=== PATIENT | male | born 1955 | race Caucasian/White ===

== ENCOUNTER 2021-09-28 08:08 | Inpatient (IN) | payer MEDICARE, OTHER ==
[2021-09-21 15:39] LABS: BASOPHILS % (AUTO) 0.4 % (0-1); EOSINOPHILS # (AUTO) 0.2 X10'3 (0-0.9); EOSINOPHILS % (AUTO) 3.4 % (0-6); LYMPHOCYTES # (AUTO) 2.1 X10'3 (1.1-4.8); LYMPHOCYTES % (AUTO) 29.8 % (21-51); MEAN CORPUSCULAR HEMOGLOBIN 34.2 PG (27.0-31.0); MEAN CORPUSCULAR HGB CONC 33.9 g/dL (33.0-36.5); MEAN CORPUSCULAR VOLUME 100.8 FL (78-98); MEAN PLATELET VOLUME 7.8 FL (7.4-10.4); MONOCYTES # (AUTO) 0.7 X10'3 (0-0.9); MONOCYTES % (AUTO) 10.3 % (2-12); NEUTROPHILS # (AUTO) 3.9 X10'3 (1.8-7.7); NEUTROPHILS % (AUTO) 56.1 % (42-75); PRE OP HEMATOCRIT 39.2 % (42.0-52.0); PRE OP HEMOGLOBIN 13.3 g/dL (14.0-17.9); PRE OP PLATELET COUNT 188 X10'3 (140-440); RED BLOOD COUNT 3.89 X10'6 (4.70-6.10); RED CELL DISTRIBUTION WIDTH 13.9 % (11.5-14.5)
[2021-09-21 15:53] LABS: PRE OP PROTIME 10.1 SECONDS (9.0-12.0)
[2021-09-21 15:54] LABS: ALBUMIN 3.6 G/DL (3.4-5.0); ALKALINE PHOSPHATASE 58 IU/L (46-116); BLOOD UREA NITROGEN 15 MG/DL (7-18); BUN/CREATININE RATIO 16.7 (5.4-32.0); CALCIUM 8.5 MG/DL (8.5-10.1); CHLORIDE 103 MMOL/L (99-107); PRE OP ALT 28 U/L (30-65); PRE OP ANION GAP 10 (8-16); PRE OP AST 24 U/L (10-37); PRE OP BILIRUB, TOTAL 0.5 MG/DL (0.0-1.0); PRE OP GLUCOSE 102 MG/DL (70-104); PRE OP POTASSIUM 3.9 MMOL/L (3.4-5.1); PRE OP SODIUM 140 MMOL/L (135-145); TOTAL CARBON DIOXIDE 27.4 MMOL/L (24-32); TOTAL PROTEIN 7.3 G/DL (6.4-8.2); eGFR 84 ML/MIN
[2021-09-28] VITALS (26 sets, daily range): BP systolic 104–154; BP diastolic 50–109
[~2021-09-28] VITALS: Ht 177.8 cm; Wt 100.0 kg
[~2021-09-28 08:08] MED LIST: ACET-2971 PO; ALLO300T8 PO; ASCO-139 PO; ASPI-529 PO; ATOR10TA70 PO; CARV12.5 PO; DIAZ10TA4 PO; DOCUMENT DATE & TIME OF BETA-BLOCKER PO ONE; FOLI0.4T6 PO; FURO20TA4 PO; HYDR-3964 PO; MAGN400C PO; MULT-1085 PO; OMEG-165 PO; POTA-192 PO; PRE1T PO; THIA50TA10 PO; ceFAZolin inj. 2,000 MG in dextrose 5%-water 100 ML IV ONE; famotidine 20mg tablet PO ONE; ringers solution, lacted 1,000 ML IV SCH; tranexamic acid 650mg tablet PO ONE; vancomycin/NS 1 GM in NS 250 ML IV ONE
--- NOTE | 2021-09-28 09:23 | NUR ---
CSM INTACT PEDAL PULSES MARKED, PATIENT DID NOT WATCH ORTHO VIDEOS BUT DID USE NASAL OINTMENT ORDERED
[2021-09-28 09:45] LABS: ALANINE AMINOTRANSFERASE 29 U/L (12-78); ALBUMIN 3.6 G/DL (3.4-5.0); ALBUMIN/GLOBULIN RATIO 0.9 (1.1-1.5); ALKALINE PHOSPHATASE 63 IU/L (46-116); ANION GAP 8 (8-16); ASPARTATE AMINO TRANSFERASE 25 U/L (10-37); BILIRUBIN,TOTAL 0.8 MG/DL (0.1-1.0); BLOOD UREA NITROGEN 12 MG/DL (7-18); BUN/CREATININE RATIO 15.2 (5.4-32.0); CALCIUM 8.7 MG/DL (8.5-10.1); CHLORIDE 102 MMOL/L (99-107); CREATININE 0.79 MG/DL (0.60-1.10); GLUCOSE 104 MG/DL (70-104); POTASSIUM 4.3 MMOL/L (3.5-5.1); SODIUM 138 MMOL/L (135-145); TOTAL CARBON DIOXIDE 28.1 MMOL/L (24-32); TOTAL PROTEIN 7.4 G/DL (6.4-8.2); eGFR > 90 ML/MIN
[2021-09-28] MEDS ORDERED: proCHLORperazine 10 MG/2 ml inj IV PRN (11:10)
[2021-09-28] MEDS ORDERED: morphine 2 MG/ML inj. syringe IV PRN (11:10)
[2021-09-28] MEDS ORDERED: ondansetron/PF 4mg/2ml inj IV PRN ×2 (11:10→14:50)
[2021-09-28] MEDS ORDERED: morphine 4 MG/ML inj SYRINge IV PRN (11:10)
[2021-09-28] MEDS ORDERED: ringers solution, lacted 1,000 ML IV SCH (11:10)
[2021-09-28] MEDS ORDERED: meperidine/PF 25mg/ml syringe IV PRN ×3 (11:10)
[2021-09-28] MEDS ORDERED: ketorolac trometh. 30mg/ml inj. ONE (11:42)
[2021-09-28] MEDS ORDERED: ROPIVAcaine 0.5% (5mg/ml) 30ml vial ONE (11:42)
[2021-09-28] MEDS ORDERED: MIDAZolam 1mg/ml 10ml vial ONE (12:52)
[2021-09-28] MEDS ORDERED: fentaNYL/PF 50MCG/1 ML 2ML syringe ONE (12:52)
[2021-09-28] MEDS ORDERED: BUPIVAcaine 0.5% inj/PF 30 ML ONE (13:01)
[2021-09-28] MEDS ORDERED: magnesium hydroxide 30ml (MOM) UD suspension PO PRN (14:50)
[2021-09-28] MEDS ORDERED: oxyCODONE IR 5mg (immed. release) tablet PO PRN ×2 (14:50)
[2021-09-28] MEDS ORDERED: HYDROcodone/acetaminophen 5mg/325mg tablet PO PRN (14:50)
[2021-09-28] MEDS ORDERED: HYDROmorphone inj. 0.5 MG/0.5 ML DISP.SYRIN IV PRN (14:50)
[2021-09-28] MEDS ORDERED: bisacodyl 10mg suppository rectal RC PRN (14:50)
[2021-09-28] MEDS ORDERED: diphenhydrAMINE 25mg capsule PO PRN ×2 (14:50)
[2021-09-28] MEDS ORDERED: naloxone 0.4 mg/ml inj IV PRN (14:50)
[2021-09-28] MEDS ORDERED: acetaminophen 325mg tablet PO PRN (14:50)
[2021-09-28] MEDS ORDERED: hydrocortisone sod succ/PF 100mg/2ml inj. ONE (14:53)
--- NOTE | 2021-09-28 15:00 | NUR ---
Received from OR via SURGICAL BED , accompanied by Anesthesiologist SHRADDHA and report given by Anesthesiolgist. PATIENT WITH 18G PIV IN LEFT UE RUNNING LRA T 100. DENIES PAIN . SPINAL ANESTHESIA SENSATION LEVEL AT T12. KNEE WRAP AND POWDER PACK PRESENT TO LEFT AND HAS A +CAP REFILL AND DP. SCDS DONNED. Addendum: 09/28/21 at 1513 by Gaurav Cueva RN, RN Amended: Links added.
--- NOTE | 2021-09-28 15:00 | NUR ---
Received from OR via SURGICAL BED , accompanied by Anesthesiologist PRO and report given by Anesthesiolgist. PATIENT WITH 18G PIV IN LEFT UE RUNNING LR AT 20. VSS AT THIS TIME KNEE WRAP TO LEFT THAT IS CDI WITH +DP. JAIN CATHER PRESENT WITH SCANT URINE PRESENT.
--- NOTE | 2021-09-28 17:29 | NUR ---
MD CALLED REGARDING HR IN 140-150S ORDER FOR COREG RECEIVED PER MD. MAST, WILL ADMINISTER Addendum: 09/28/21 at 1734 by Gaurav Cueva RN RN Amended: Links added.
[2021-09-28] MEDS: carvedilol 6.25mg tablet PO SCH (17:42)
--- NOTE | 2021-09-28 17:54 | NUR ---
MD ECHOLS CALLED REGARDING TALKING TO MARIAELENA TO HAVE PATIENT TRANSFERED TO THE PCU UNIT VS ORTHOPEDICS. HR IN 140-`160'S MD FERRELL TO BE NOTIFIED BY MD ECHOLS OF THIS EVENT AND CHANGE IN FLOOR ASSIGNMENT WELL HIS NEED TO CONTACT A HOSPITALIST. Addendum: 09/28/21 at 1757 by Gaurav Cueva RN, RN Amended: Links added.
--- NOTE | 2021-09-28 18:03 | NUR ---
MD MAST CALLED AND I ASKED HIM ABOUT THE SUSTAINED HIGH HEART RATE. HE STATES TO CALL A HOSPITALIST. Addendum: 09/28/21 at 1809 by Gaurav Cueva RN, RN Amended: Links added.
[2021-09-28] MEDS ORDERED: diltiazem 5mg/ml 5ml inj. IV ONE (18:10)
--- NOTE | 2021-09-28 18:10 | NUR ---
DR CHI CALLED AND ORDERS RECEIVED FOR [place] IVP X1 HERE IN RR UNTIL MD LARA CAN BE NOTIFIED AT 7PM UPON SHIFT ARRIVAL. Addendum: 09/28/21 at 1811 by Gaurav Cueva RN, RN Amended: Links added.
--- NOTE | 2021-09-28 18:21 | NUR ---
STILL AWAITING STACIA QUINN FROM PHARMACY. CALLED AND REQUESTED AGAIN Addendum: 09/28/21 at 1823 by Gaurav Cueva RN, RN Amended: Links added.
--- NOTE | 2021-09-28 18:40 | NUR ---
ALL CRITERIA FOR TRANSFER TO THE FLOOR HAS BEEN MET AT THIS TIME. VSS. PATIENT PAIN AT A TOLERABLE LEVEL. RN ARRIVED WELL DENTAL SERVICE TECHNICIAN TO ASSIST IN SET UP. PATIENT HAS ONE BAG OF BELONGINGS AND A CELL PHONE THAT WENT TO THE ROOM WITH THIS PATIENT. CARE TURNED OVER TO RN BED LOW AND CALL LIGHT PRESENT. Addendum: 09/28/21 at 1855 by Gaurav Mike - LOLA RN Amended: Links added.
--- NOTE | 2021-09-28 18:50 | NUR ---
Received from OR via SURGICAL BED , accompanied by Anesthesiologist DAVID and report given by Anesthesiolgist. PATIENT WITH 20G IV IN LEFT UE RUNNING LR AT 100. VSS [place] DRESSING PRESENT AND 3 BANDAIDS PRESENT. ALL DRESSINGS CDI. VSS. JAIN CATHETER IN PLACE WITH CLEAR YELLOW URINE PRESENT. 10L MASK ON WITH 100% SATURATIONS AT THIS TIME. SCDS DONNED.
[2021-09-28] MEDS: HYDROmorphone 1 mg/ml syringe IV PRN (19:56)
[2021-09-28] MEDS: acetaminophen 325mg tablet PO SCH (19:57)
[2021-09-28] MEDS: ceFAZolin/D5W- 1GM premix 50 ML IV SCH ×2 (19:58→23:39)
[2021-09-28] MEDS ORDERED: vancomycin/NS 1 GM ADD-VANTAGE 250 ML IV SCH (20:00)
[2021-09-28] MEDS: potassium cl 20mEq in 1/2 NS 1,000 ML IV SCH ×2 (20:04→21:23)
[2021-09-28] MEDS ORDERED: sennosides 8.6mg tablet PO SCH (21:00)
[2021-09-28] MEDS ORDERED: diazepam 5mg tablet PO SCH (21:00)
[2021-09-28 22:27] LABS: CREATINE KINASE 109 U/L (39-308); LIPASE < 50 U/L (73-393)
--- NOTE | 2021-09-29 01:14 | NUR ---
Dr Salguero came to floor and looked at EKG, reviewed lab results. Order for Cardizem IVP 15mg x2 doses half hour apart, if HR sustains above 120. If no improvement after 2 doses IVP and HR still elevated can start patient on cardizem drip at 5 per protocol. Patient HR currently 90s to 100s.
[2021-09-29] MEDS: acetaminophen 325mg tablet PO SCH ×2 (01:56→07:56)
[2021-09-29] MEDS: HYDROmorphone 1 mg/ml syringe IV PRN (01:59)
[2021-09-29 02:00] VITALS: BP 126/80
[2021-09-29 05:55] LABS: BASOPHILS % (AUTO) 0 % (0-1); EOSINOPHILS % (AUTO) 0 % (0-6); HEMATOCRIT 34.5 % (42.0-52.0); HEMOGLOBIN 11.6 g/dl (14.0-17.9); LYMPHOCYTES # (AUTO) 0.8 X10'3 (1.1-4.8); LYMPHOCYTES % (AUTO) 8.1 % (21-51); MEAN CORPUSCULAR HEMOGLOBIN 33.9 PG (27.0-31.0); MEAN CORPUSCULAR HGB CONC 33.7 g/dL (33.0-36.5); MEAN CORPUSCULAR VOLUME 100.5 FL (78-98); MEAN PLATELET VOLUME 8.2 FL (7.4-10.4); MONOCYTES # (AUTO) 0.5 X10'3 (0-0.9); MONOCYTES % (AUTO) 5.2 % (2-12); NEUTROPHILS # (AUTO) 8.1 X10'3 (1.8-7.7); NEUTROPHILS % (AUTO) 86.7 % (42-75); PLATELET COUNT 189 X10'3 (140-440); RED BLOOD COUNT 3.43 X10'6 (4.70-6.10); RED CELL DISTRIBUTION WIDTH 14.4 % (11.5-14.5); WHITE BLOOD COUNT 9.3 X10'3 (4.5-11.0)
[2021-09-29 06:08] LABS: ANION GAP 6 (8-16); CHLORIDE 104 MMOL/L (99-107); SODIUM 137 MMOL/L (135-145); TOTAL CARBON DIOXIDE 27.1 MMOL/L (24-32)
[2021-09-29] MEDS: potassium cl 20mEq in 1/2 NS 1,000 ML IV SCH (06:50)
[2021-09-29] MEDS ORDERED: pantoprazole 40mg Tablet.DR PO SCH (07:30)
[2021-09-29 07:40] VITALS: BP 131/85
[2021-09-29] MEDS: carvedilol 6.25mg tablet PO SCH (07:57)
[2021-09-29] MEDS ORDERED: magnesium oxide 400mg tablet PO SCH (08:00)
[2021-09-29] MEDS ORDERED: multivitamins, therapeutics tablet PO SCH (08:00)
[2021-09-29] MEDS ORDERED: furosemide 20MG tablet PO SCH (08:00)
[2021-09-29] MEDS ORDERED: predniSONE 1 mg tablet PO SCH (08:00)
[2021-09-29] MEDS ORDERED: aspirin 81mg, enteric-coated 1 TAB TABLET.DR PO SCH (08:00)
[2021-09-29] MEDS ORDERED: ascorbic acid 500mg tablet PO SCH (08:00)
[2021-09-29] MEDS ORDERED: allopurinol 300 MG tablet PO SCH (08:00)
[2021-09-29] MEDS ORDERED: atorvastatin 10mg tablet PO SCH (08:00)
[2021-09-29] MEDS ORDERED: OMEGA-3/DHA/EPA/FISH OIL 1 EACH CAPSULE.DR PO SCH (08:00)
[2021-09-29] MEDS ORDERED: folic acid 0.4mg tablet PO SCH (08:00)
[2021-09-29] MEDS ORDERED: non-formulary drug (Acetaminophen (Tylenol Arthritis) 2 TAB) PO SCH (08:00)
[2021-09-29] MEDS ORDERED: aspirin 325mg tablet PO SCH (08:30)
[2021-09-29 11:02] VITALS: BP 131/71
--- NOTE | 2021-09-29 11:08 | NUR ---
PAGER ID: [phone] MESSAGE: [id number] Marcus, R: patient requesting coreg RX. he says his pcp will not refill at the moment and hes out of town. thanks, amara [phone]
--- NOTE | 2021-09-29 12:25 | NUR ---
Patient stable and appropriate for discharge home with SO. IV and tape duplicator removed, all belongings taken from room. Coreg RX called into preferred pharmacy. Powder pack x2 sent home with patient. All discharge instructions and education given and reviewed with patient, all questions answered.
[2021-09-30] MEDS ORDERED: acetaminophen 325mg tablet PO PRN (14:50)
== END 2021-09-29 12:30 | disposition home or self-care (01) | DRG 470 ==
LOC: PAS 08:08 → PCU 3S 14:56
PROVIDERS: ADMIT Orthopaedic Surgery; ATTEND Family Medicine
PROC: 3E0T3BZ Introduction of Anesthetic Agent into Peripheral Nerves and Plexi, Percutaneous Approach (ICD-10-PCS; 2021-09-28)
PROC: 3E0T33Z Introduction of Anti-inflammatory into Peripheral Nerves and Plexi, Percutaneous Approach (ICD-10-PCS; 2021-09-28)
PROC: 0SRD0J9 Replacement of Left Knee Joint with Synthetic Substitute, Cemented, Open Approach (ICD-10-PCS; principal; 2021-09-28 12:42)
DX: M17.12 Unilateral primary osteoarthritis, left knee (principal); I48.20 Chronic atrial fibrillation, unspecified; M10.9 Gout, unspecified; N48.6 Induration penis plastica; I11.0 Hypertensive heart disease with heart failure; I50.9 Heart failure, unspecified; G89.4 Chronic pain syndrome; Z79.899 Other long term (current) drug therapy; Z91.14 Patient's other noncompliance with medication regimen
CPT/HCPCS: 36415; 71045; 80051; 80053; 82550; 83690; 83880; 84443; 84484; 85025; 85610; 85730; 87081; 93005; 97110; 97161; 97530; A4215; A7000; C1713; C1758; C1776; G0378; J0690; J1170; J1720; J1885; J2175; J2250; J2270; J2795; J3010; J3370; J3480; J3490; J7040; J7060; J7120; J7512; S0020

== ENCOUNTER 2021-10-05 12:41 | Emergency (ER) | payer MEDICARE, OTHER ==
[~2021-10-05] VITALS: Ht 177.8 cm; Wt 102.0 kg
[~2021-10-05 12:41] MED LIST changes: -DOCUMENT DATE & TIME OF BETA-BLOCKER PO ONE; -ceFAZolin inj. 2,000 MG in dextrose 5%-water 100 ML IV ONE; -famotidine 20mg tablet PO ONE; -ringers solution, lacted 1,000 ML IV SCH; -tranexamic acid 650mg tablet PO ONE; -vancomycin/NS 1 GM in NS 250 ML IV ONE
[2021-10-05 13:57] VITALS: BP 153/95
--- NOTE | 2021-10-05 20:08 | NUR ---
VASCULAR PAGED AT 2008
--- NOTE | 2021-10-05 23:48 | NUR ---
PT SEEN AND DC'D BY PROVIDER
== END 2021-10-05 23:50 | disposition home or self-care (01) ==
LOC: ER 12:41
DX: R60.0 Localized edema (principal); Z79.899 Other long term (current) drug therapy; Z79.82 Long term (current) use of aspirin
CPT/HCPCS: 93971; 99284

== ENCOUNTER 2022-08-25 05:45 | Emergency (ER) | payer MEDICARE, OTHER ==
[~2022-08-25] VITALS: Ht 177.8 cm; Wt 110.0 kg
[~2022-08-25 05:45] MED LIST changes: +ALBU90AE INH
[2022-08-25] MEDS ORDERED: OXYC-150 PO (08:50)
[2022-08-25] MEDS: oxyCODONE/APAP 10/325mg tablet PO ONE ×2 (08:54→08:55)
--- NOTE | 2022-08-25 08:55 | NUR ---
PT HAS TO DRIVE HIMSELF HOME. PERCOCET WAS NON ADMIN AND PT AGREED TO WAIT AND TAKE PAIN MED ONCE HE IS HOME. PT REFUSED OTHER NON OPIATE PAIN MED AT THIS TIME.
[2022-08-25 09:03] VITALS: BP 178/113
== END 2022-08-25 09:12 | disposition home or self-care (01) ==
LOC: ER 05:45
DX: S80.12XA Contusion of left lower leg, initial encounter (principal); I51.9 Heart disease, unspecified; Z79.899 Other long term (current) drug therapy; Z88.6 Allergy status to analgesic agent; Z79.1 Long term (current) use of non-steroidal anti-inflammatories (NSAID); Z79.2 Long term (current) use of antibiotics; X58.XXXA Exposure to other specified factors, initial encounter; Y93.89 Activity, other specified; Y92.89 Other specified places as the place of occurrence of the external cause; Y99.8 Other external cause status
CPT/HCPCS: 73590; 93971; 99284

== ENCOUNTER 2023-08-11 11:24 | Emergency (ER) | payer MEDICARE ==
[~2023-08-11] VITALS: Ht 177.8 cm; Wt 103.7 kg
[~2023-08-11 11:24] MED LIST changes: +OXYC-150 PO
[2023-08-11 11:25] VITALS: BP 135/92; PULSE 85; O2SAT 95
[2023-08-11] MEDS ORDERED: SULF1TAB49 PO (14:06)
[2023-08-11] MEDS ORDERED: CEPH-585 PO (14:06)
[2023-08-11 14:11] VITALS: RESP 18; TEMP 98.5
== END 2023-08-11 14:12 | disposition home or self-care (01) ==
LOC: ER 11:25
DX: L03.113 Cellulitis of right upper limb (principal); Z79.1 Long term (current) use of non-steroidal anti-inflammatories (NSAID); Z79.82 Long term (current) use of aspirin; Z79.899 Other long term (current) drug therapy
CPT/HCPCS: 73130; 99283

== ENCOUNTER 2025-01-14 09:53 | Day surgery (SDC) | payer MEDICARE ==
[2025-01-14] VITALS (12 sets, daily range): BP systolic 139–172; BP diastolic 75–92; PULSE 63–92; RESP 13–17; TEMP 95.9; O2SAT 98–100
[~2025-01-14] VITALS: Ht 177.8 cm; Wt 105.1 kg
[2025-01-14] MEDS: ceFAZolin 2gm/dext,iso 50mL 50 ML IV ONE (05:30)
[2025-01-14] MEDS: DOCUMENT DATE & TIME OF BETA-BLOCKER PO ONE (05:30)
[~2025-01-14 09:53] MED LIST changes: -ACET-2971 PO; -ALBU90AE INH; +ALLO200T PO; -ALLO300T8 PO; +APIX5TAB3 PO; +ASCO-134 PO; -ASCO-139 PO; -ASPI-529 PO; -ATOR10TA70 PO; +ATOR20TA66 PO; +CALCIUM PO; +CHOL500061 PO; +CIDE600C PO; +CYAN-34 PO; -DIAZ10TA4 PO; +FLUT9.9S BOTHNARES; +METF-900 PO; -MULT-1085 PO; -OXYC-150 PO; +OXYM15MI; +SACU1TAB PO; +SPIR25TA5 PO; +TAMS-55 PO; -THIA50TA10 PO; +TURM500C4 PO; +[UNRECOGNIZED DRUG - CODE]
[2025-01-14] MEDS: ringers solution, lacted 1,000 ML IV SCH (10:40)
[2025-01-14] MEDS: oxymetazoline 15 ML nasal spray NS ONE (10:41)
[2025-01-14] MEDS ORDERED: cocaine 4% topical solution 4ml bottle ONE (11:01)
[2025-01-14] MEDS ORDERED: methylPREDNISolone acetate 80mg/ml inj**IM only ONE (11:01)
[2025-01-14] MEDS ORDERED: epiNEPHrine 1 mg/ml 30ml MDV ONE (11:01)
[2025-01-14] MEDS ORDERED: oxymetazoline 15 ML nasal spray NS ONE (11:01)
[2025-01-14] MEDS ORDERED: LIDOcaine 1% W/epiNEPHrine 1:100,000 20ml vial ONE (11:01)
[2025-01-14] MEDS ORDERED: midazolam 1 mg/ML 2ml injection ONE (12:07)
[2025-01-14] MEDS ORDERED: fentaNYL/PF 50MCG/1 ML 2ML syringe ONE (12:07)
[2025-01-14] MEDS ORDERED: hydrALAZINE 20mg/ml inj. IV PRN (12:10)
[2025-01-14] MEDS ORDERED: ondansetron/PF 4mg/2ml inj IV PRN (12:10)
[2025-01-14] MEDS ORDERED: ringers solution, lacted 1,000 ML IV SCH (12:10)
[2025-01-14] MEDS ORDERED: HYDROmorphone/PF 0.2 MG/ML SYRINGE IV PRN (12:10)
[2025-01-14] MEDS ORDERED: fentaNYL/PF 50MCG/1 ML 2ML syringe IV PRN ×2 (12:10)
[2025-01-14] MEDS ORDERED: labetalol 20mg/4ml (5mg/ml) syringe IV PRN (12:10)
[2025-01-14] MEDS ORDERED: acetaminophen 1,000mg/100ml IV 100 ML IV PRN (12:10)
[2025-01-14] MEDS ORDERED: propofol inj 20 ML IV ONE (12:33)
[2025-01-14] MEDS ORDERED: dexamethasone sod phosphate 4mg/ml inj. ONE (12:33)
[2025-01-14] MEDS ORDERED: tranexamic acid 100mg/ml inj. ONE (12:34)
[2025-01-14] MEDS ORDERED: ondansetron/PF 4mg/2ml inj ONE (12:46)
--- NOTE | 2025-01-14 13:30 | OPERATIVE REPORT ---
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 PROCEDURE: Excision of nasal polyp/tumor, nasal cavity. SURGEON: Олег Bolton MD. ANESTHESIA: General laryngeal mask, Dr. Teran. HISTORY: The patient is a 69-year-old male with a 3 year history of nasal congestion and intermittent greenish mucus with bloody discharge. He has been refractory to maximal medical therapy. On physical examination, the left nasal cavity was filled with polyposis and mucopus, which was cultured. CT scan revealed no involvement of the sinuses. On the base of the above findings, I felt the patient had left sided nasal polyposis, possible tumor, and the risks, alternatives, and benefits of excisional surgery were explained to the patient and accepted. The patient was explained if this was revealed to be neoplastic on pathology, further surgical management would be required to obtain margins. PROCEDURE: The patient was brought to the operating room and given a general laryngeal mask anesthesia and prepped and draped in the usual fashion. 1% Xylocaine with 1:100,000 epinephrine was infiltrated into the mass of the left nasal polyp. The left nasal polyp was then excised using sharp dissection under endoscopic and headlight visualization. Microshaver was used to remove further polyposis after the main mass had been excised. The findings were as follows: The polyp was granular in its surface appearance and quite vascular. There was extension of this tissue onto the left limen vestibule. 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 Permanent pathology pending. At the end of the procedure, hemostasis was obtained with cottonoids and the cottonoids were removed and then the nasal cavity was packed with a dissolvable packing (PosiSep). The patient was then awakened, extubated, and returned to the recovery room in stable condition. Олег Bolton MD TID: [id number] RECEIPT: [id number] GD/VERONICA cc: Tatiana Cee PA-C
[2025-01-14] MEDS: HYDROmorphone/PF 0.2 MG/ML SYRINGE IV PRN (14:23)
[2025-01-14] MEDS ORDERED: oxymetazoline 15 ML nasal spray NS SCH (14:28)
[2025-01-14] MEDS ORDERED: mupirocin 2% nasal ointment 1gm UD NS SCH (14:28)
[2025-01-14] MEDS ORDERED: salt irrigation nasal spray 45 ML SPRAY NS SCH (15:00)
== END 2025-01-14 15:26 | disposition home or self-care (01) ==
LOC: PAS 09:53
PROVIDERS: ATTEND Otolaryngology
DX: D14.0 Benign neoplasm of middle ear, nasal cavity and accessory sinuses (principal); I11.0 Hypertensive heart disease with heart failure; I50.9 Heart failure, unspecified; E78.5 Hyperlipidemia, unspecified; E66.9 Obesity, unspecified; I48.91 Unspecified atrial fibrillation; G47.30 Sleep apnea, unspecified; G47.33 Obstructive sleep apnea (adult) (pediatric); Z87.891 Personal history of nicotine dependence; Z79.01 Long term (current) use of anticoagulants; Z96.652 Presence of left artificial knee joint; Z98.890 Other specified postprocedural states; Z68.33 Body mass index [BMI] 33.0-33.9, adult
CPT/HCPCS: 31237; 82948; 88304; A4618; A6402; A7000; J0169; J1010; J1100; J1171; J2250; J2405; J2704; J3010; J3490; J7030; J7040; J7120; Z7506; Z7512; Z7610; A6449

== ENCOUNTER 2025-02-25 09:05 | Day surgery (SDC) | payer MEDICARE ==
[2025-02-25] VITALS (9 sets, daily range): BP systolic 136–165; BP diastolic 80–105; PULSE 77–150; RESP 12–16; TEMP 96.6; O2SAT 91–99
[~2025-02-25] VITALS: Ht 177.8 cm; Wt 107.8 kg
[2025-02-25] MEDS: ceFAZolin 2gm/dext,iso 50mL 50 ML IV ONE (05:30)
[2025-02-25] MEDS: tranexamic acid 1gm/0.7% sal. 100 ML IV ONE (05:30)
[~2025-02-25 09:05] MED LIST changes: -CALCIUM PO; -CIDE600C PO; +DOCUMENT DATE & TIME OF BETA-BLOCKER PO ONE; -OXYM15MI; -POTA-192 PO; -PRE1T PO; -TURM500C4 PO; -[UNRECOGNIZED DRUG - CODE]
[2025-02-25] MEDS ORDERED: ondansetron/PF 4mg/2ml inj IV PRN (10:00)
[2025-02-25] MEDS ORDERED: enalaprilat 1.25mg/ml 2ml vial IV PRN (10:00)
[2025-02-25] MEDS ORDERED: morphine 4 MG/ML inj SYRINge IV PRN (10:00)
[2025-02-25] MEDS ORDERED: fentaNYL/PF 50MCG/1 ML 2ML syringe IV PRN ×2 (10:00)
[2025-02-25] MEDS ORDERED: HYDROmorphone/PF 0.2 MG/ML SYRINGE IV PRN ×2 (10:00)
[2025-02-25] MEDS: ringers solution, lacted 1,000 ML IV SCH ×2 (10:50→15:52)
[2025-02-25] MEDS: oxymetazoline 15 ML nasal spray NS ONE (10:51)
[2025-02-25] MEDS ORDERED: LIDOcaine 1% W/epiNEPHrine 1:100,000 20ml vial ONE (11:14)
[2025-02-25] MEDS ORDERED: cocaine 4% topical solution 4ml bottle ONE (11:14)
[2025-02-25] MEDS ORDERED: oxymetazoline 15 ML nasal spray NS ONE (11:16)
[2025-02-25] MEDS ORDERED: epiNEPHrine 1 mg/ml 30ml MDV ONE (11:16)
[2025-02-25 12:13] LABS: MEAN PLATELET VOLUME 8.3 FL (7.4-10.4); RED CELL DISTRIBUTION WIDTH 14.1 % (11.5-14.5)
[2025-02-25 12:27] LABS: APTT 28 SECONDS (22-32); INR 1.0 INR
[2025-02-25 12:32] LABS: CREATININE 0.66 MG/DL (0.60-1.10); TOTAL CARBON DIOXIDE 30.7 MMOL/L (24-32); eCRCL 108 ML/MIN; eGFR > 90 ML/MIN
[2025-02-25] MEDS ORDERED: fentaNYL/PF 50MCG/1 ML 2ML syringe ONE (13:42)
[2025-02-25] MEDS ORDERED: midazolam 1 mg/ML 2ml injection ONE (13:43)
[2025-02-25] MEDS ORDERED: LIDOcaine 1%/PF 5ML 10 MG/ML VIAL ONE (13:52)
[2025-02-25] MEDS ORDERED: propofol inj 20 ML IV ONE (13:53)
[2025-02-25] MEDS ORDERED: rocuronium 10mg/ml inj IV ONE (14:10)
[2025-02-25] MEDS ORDERED: dexamethasone sod phosphate 4mg/ml inj. ONE (14:12)
[2025-02-25] MEDS ORDERED: morphine 4 MG/ML inj SYRINge ONE (15:17)
[2025-02-25] MEDS: labetalol 20mg/4ml (5mg/ml) syringe IV PRN (16:03)
--- NOTE | 2025-02-25 16:30 | OPERATIVE REPORT ---
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 Right inferior turbinate hypertrophy. 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 Right inferior turbinate hypertrophy. PROCEDURES: 1. Septoplasty. 2. Submucous resection right inferior turbinate. 3. Nasal endoscopy surgical with left total ethmoidectomy with removal of tumor involving medial wall. 4. Medial maxillectomy left side with resection of tumor involving medial maxillary sinus wall and inferior turbinate. 5. Nasal valve reconstruction with excision of tumor underlying left nasal valve with reconstruction with advancement rotation flap. 6. Stereotactic computer-assisted navigational procedure, extracranial. SURGEON: Олег Bolton MD ANESTHESIA: General endotracheal, Dr. Chin. 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 The patient returned to the operating room for more extensive resection. On physical examination, there were papillomatous lesions involving the nasal floor, left lateral nasal wall including the undersurface of the left nasal valve. It also involved the septum and the medial wall of the ethmoid bulla and uncinate. On the base of above findings, it was felt the patient had exophytic nasal papilloma involving the above noted structures and the risks, alternatives, and benefits of surgery were explained to the patient and accepted. DESCRIPTION OF PROCEDURE: The patient was brought to the operating room, given a general endotracheal anesthesia and prepped and draped in the usual fashion and 1% Xylocaine with 1:100,000 epinephrine was infiltrated into the planned surgical sites utilizing headlight and endoscope. Image-guided system was attached to the patient. Calibration and verification satisfactorily accomplished. The reason we had chosen to carry out this procedure under image guidance was the presence of tumor in close proximity to the orbit. After a suitable time had elapsed for vasoconstriction, the operation was commenced by microshaving away papillomatous tissue involving the left side of the nasal septum. This was rather extensive and extended from overlying the quadrilateral cartilage to the perpendicular plate of the ethmoid. It was found along the nasal floor and we continued microshaving this away. It actually extended out onto the piriform aperture and this was resected. We continued taking tumor off the undersurface of the juncture of the lower lateral cartilage and upper lateral cartilage (intranasal valve). We kept following the tumor as it proceeded back onto the inferior turbinate and noted its presence in the inferior meatus along the medial wall of the left maxillary sinus. It extended up onto the bulla ethmoidalis and uncinate process at this point. At this point, we commenced the endoscopic sinus surgery portion of the procedure by carrying out a left middle meatal maxillary antrostomy removing the uncinate process, penetrating into the posterior fontanelle of the maxillary sinus and removing the tissue between this penetration and the natural ostium, creating a large hole middle meatal maxillary antrostomy. Continued then carrying out a left total ethmoidectomy using straight and curved microshaver blades and Thru-Cut instrumentation, dissecting out the anterior and posterior ethmoid air cell system. We returned our attention to the medial surface of the inferior turbinate and noted papillomatous lesions along the middle one-third. We decided at this point to carry out a medial maxillectomy. The inferior turbinate was resected both its anterior and middle one-thirds. We then removed the medial wall of the maxillary sinus using a 15-degree high-speed evelio la. We took the dissection far forward and removed all visible tumor. Continued dissecting back along the inferior turbinate and noted papillomatous lesions extending posteriorly to the posterior choana and these were microshaved and the stumps of the resected tissue controlled with bipolar forceps and suction Bovie. Tumor could be seen penetrating into the nasopharynx and extending into the posterior choanae on the right-hand side. This was all removed using microshaver with hemostasis with suction Bovie and bipolar forceps. A flap of skin was developed from the piriform aperture and brought posteromedially to cover the resected portion of the nasal valve region. The entire nasal cavity was filled with HemoPore and hemostasis appeared to be intact. To remove the obstruction of the right nasal cavity, a submucous resection of the inferior turbinate was carried out using the microshaver technique. Hemostasis appeared to be intact after this portion of the procedure. The patient was then awakened, extubated and returned to the recovery room in stable condition. Олег Bolton MD TID: [id number] RECEIPT: [id number] LINDEN/PILY cc: Tatiana Cee PA-C
[2025-02-25] MEDS: HYDROcodone/acetaminophen 5mg/325mg tablet PO STA (16:51)
[2025-02-25] MEDS: salt irrigation nasal spray 45 ML SPRAY NS STA (16:52)
[2025-02-25] MEDS: mupirocin 2% nasal ointment 1gm UD NS STA (16:52)
== END 2025-02-25 17:12 | disposition home or self-care (01) ==
LOC: PRE-OP 09:05
PROVIDERS: ATTEND Otolaryngology
DX: J34.3 Hypertrophy of nasal turbinates (principal); D14.0 Benign neoplasm of middle ear, nasal cavity and accessory sinuses; I10 Essential (primary) hypertension; I48.91 Unspecified atrial fibrillation; E66.01 Morbid (severe) obesity due to excess calories; G47.33 Obstructive sleep apnea (adult) (pediatric); M79.7 Fibromyalgia; Z87.891 Personal history of nicotine dependence; Z79.891 Long term (current) use of opiate analgesic; Z79.899 Other long term (current) drug therapy; Z96.652 Presence of left artificial knee joint; Z98.890 Other specified postprocedural states; Z68.34 Body mass index [BMI] 34.0-34.9, adult
CPT/HCPCS: 14060; 30140; 30520; 31255; 31267; 36415; 61782; 80053; 85025; 85610; 85730; 88304; 88311; A4618; A6402; A7000; J0169; J0690; J1100; J2250; J2270; J2704; J3010; J3490; J7030; J7040; J7120; Z7506; Z7508; Z7512; Z7610; A6449